=== PATIENT | male | born 1935 | race Caucasian/White ===

== ENCOUNTER 2018-10-02 10:30 | Inpatient (IN) ==
[2018-10-15] MEDS ORDERED: Chlorhexidine Gluconate 2% 1 Pack (2 Cloths) TOPICAL SCH (08:10)
[2018-10-15] MEDS ORDERED: Metoprolol Tartrate 25 MG Tablet PO SCH (08:10)
[2018-10-15] MEDS ORDERED: Chlorhexidine 4% Topical 120 APPLIC/120 ML Bottle TOPICAL SCH (08:15)
[2018-10-15] MEDS ORDERED: SODIUM CHLOR 0.9% IV.SIG SCH ×2 (09:00→12:00)
[2018-10-15] MEDS ORDERED: ceFAZolin 2 GM Premix Inj 2 GM/50 ML PIGGYBACK IV.SIG SCH (09:00)
[2018-10-15] MEDS ORDERED: Sodium Chlor 0.9% Inj 40 ML, Bupivacaine Liposo PF 1.3% Inj 20 ML P-ARTICULR SCH ×2 (09:00)
[2018-10-15] MEDS ORDERED: TRANEXAMIC ACID IV.SIG SCH ×2 (09:00→12:00)
[2018-10-15] MEDS ORDERED: Sodium Chlor 0.9% Inj 500 ML IV.SIG SCH (09:00)
[2018-10-15] MEDS ORDERED: EPINEPHrine PF/SF Inj 1 MG/ML Ampul I-OCULAR ONE (10:28)
[2018-10-15] MEDS ORDERED: Phenylephrine/NS 1000 MCG/10ML Syringe IV.PUSH ONE (10:56)
[2018-10-15] MEDS ORDERED: Post-op Orders (for Pharmacy) OTHER STA (14:05)
--- NOTE | 2018-10-15 14:12 | P.OP ---
- Preoperative Diagnosis (1) Primary osteoarthritis of left hip - Postoperative Diagnosis (1) Primary osteoarthritis of left hip Date of procedure: 10/15/18 Procedure: Left total hip arthroplasty using [place] prosthesis. Anesthesia: local (Exparel), spinal Surgeon: Twin Tinoco MD Estimated blood loss (mL): 600 Pathology: none sent Operation and Findings: Indications and Findings: This 82-year-old man has had at least 14 months of left hip pain progressively worsening to the point that he has limited weightbearing tolerance and a limited ambulation tolerance to 1/2 mile. He has difficulty ascending and descending stairs, pain when standing from a seated position and the like. Treatment has been and has included nonsteroidal anti- inflammatory agents, activity modification, corticosteroid injections, ambulatory aids and analgesics. Physical findings showed limited range of motion hip with tenderness on motion, crepitation on motion and a severely antalgic gait. Radiographic findings showed severe loss of articular cartilage to [id number] with erosion of the superior femoral head, osteophytes and subchondral sclerosis. Operative findings: There was severe osteoarthritis in the left hip with large osteophytes, flattening of the femoral head, erosion of the superior acetabulum and femoral head. There was eburnation and cyst formation. Implants: The acetabular component was a 54 mm Trident II cluster shell with a 32 mm inner diameter X3 polyethylene liner. The femoral component was size 9 x 132 degree Accolade II. The femoral head was Biolox Delta ceramic size 32 mm outer diameter with -5 mm offset. The patient was brought to the clean air operating suite and a spinal anesthetic was administered. The patient was positioned into a lateral position with the operative hip up on a [employer] lateral positioner. The hip and lower extremity were prepped with alcohol, Hibiclens and ChloraPrep and draped in the usual manner with the hip draped free. Patient received prophylactic antibiotics preoperatively. The patient also received tranexamic acid preoperatively. An appropriate timeout procedure was carried out. An incision was made from the midportion of the greater trochanter proximally and posteriorly paralleling the fibers of the gluteus tyrese. The incision was deepened through subcutaneous tissues down to the fascia jasmin and gluteus fascia. The gluteus fascia was then split longitudinally in line with its fibers up to the upper portion of the fascia jasmin. With wound towels in place, the [place] retractor was inserted. The sciatic nerve was identified and protected throughout the procedure. Dissection was then carried down to the interval between the gluteus minimus and the piriformis. A retractor was inserted. The piriformis and obturator conjoined tendon was released from the greater trochanter and reflected off the capsule. A capsulotomy was made longitudinally along the femoral neck to the base of the femoral neck and then curved distally along the posterior aspect of the greater trochanter. The hip was internally rotated. Further release of the external rotators was carried out exposing the hip. The hip was dislocated. The femoral neck was transected at the appropriate level using the oscillating saw placement of appropriate retractors. The femoral head was removed. Preparation of the femur was initiated with a box osteotome followed by a curet to identify the medullary canal. Broaching was then initiated with the size 0 broach and went in 1 size increments up to size 9. The broach handle was removed. The femoral neck was then trimmed with a calcar planar. Attention was then directed to the acetabulum. Soft tissues were debrided from the acetabulum. Retractors were placed about the acetabulum. Reaming was then initiated with the 49 millimeter reamer and went in 1-2 mm increments up to the 54 millimeter diameter reamer. A trial reduction with the 54 millimeter trial prosthesis was carried out. When this was deemed to be appropriate, the trial prosthesis was removed. The acetabulum was irrigated and cleaned. The actual prosthesis as noted above was impacted into place and seated appropriately. Drill holes were made and sounded. Appropriate sized screws were inserted to stabilize the acetabulum further. The liner as noted above was inserted into the acetabular shell and impacted into place. Osteophytes were trimmed from the acetabulum. Local anesthetic was administered throughout the area of the acetabulum and anterior aspect of the femur. The trial neck was placed on the broach for the above-noted prosthesis. The femoral head trial was placed onto the femoral neck . A trial reduction was carried out. Adjustment was made as needed. The stability, leg length and motion were excellent. There was no pistoning. The trial prosthesis was removed. The broach was removed. The femoral component was impacted into the medullary canal of the femur after irrigation and suctioning. When this was appropriately seated a trial reduction was again carried out with the trial prosthesis. There was no pistoning. The leg length was appropriate. The stability and motion were excellent. The trial prosthesis was then removed. After cleaning and drying the trunion of the femoral component, the above-noted femoral head was impacted onto the trunnion. The hip was reduced. The stability and mobility were again checked along with leg lengths as noted above. The hip was positioned appropriately and closure commenced after the remainder of the local anesthetic was injected throughout the hip. The external rotators and capsule were repaired with #1 Vicryl interrupted transosseous sutures with a Krakw technique to reattach the external rotators and capsule to the posterior aspect of the greater trochanter. The capsule itself on the superior aspect was closed with #1 Vicryl interrupted [id number] sutures. The sciatic nerve was inspected. The fascia jasmin and gluteus fascia were repaired with #1 Vicryl interrupted [id number] sutures. The subcutaneous tissues were closed with 2-0 Vicryl interrupted simple sutures with buried knots. The skin was closed with a continuous subcuticular closure of 4-0 Monocryl. The wound was then approximated with Dermabond Prineo. A silver impregnated dressing was applied to the hip. A knee immobilizer was applied to the leg. The patient was transferred from the operating room to the recovery room in satisfactory condition having tolerated the procedure well. Counts are correct. Specimens: None. Estimated blood loss: 600 mL
--- NOTE | 2018-10-15 14:14 | P.DCO ---
- Physical Therapy Physical Therapy: Gait training Hip: Total hip, Protocol: Left, Posterior hip precautions, Progress to weight bearing Canvas Knee Splint: When in bed with 2 pillows between thighs (For 2 months) Left Lower Extremity Weight Bearing: Weight bearing as tolerated Left Lower Extremity Range of Motion: Active ROM - Nursing Nursing: Dressing changes (Do not remove Dermabond Prineo (the tape that is directly on the wound).Leave the Optifoam dressing in place for 7 days. After this, daily dressing changes will be done taking care to avoid injuring or removing the Dermabond Prineo.) Dressing changes: Other (Do not remove Dermabond Prineo (the tape that is directly on the wound).Leave the Optifoam dressing in place for 7 days. After this, daily dressing changes will be done taking care to avoid injuring or removing the Dermabond Prineo.) - Case Management Consult Case Management Consult-Home Health: Yes - Certification Need for Home Health services: I have seen patient Eleno Simmons on 10/15/18. My clinical findings support the need for the requested home health care services because: Need for Home Health Services: Limited ability to care for self, High risk of falls Homebound Certification: I certify that my clinical findings support that this patient is homebound because: Homebound Certification: Post-op weakness, Unsteady gait/balance, Unsafe to leave home unassisted
[2018-10-15] MEDS ORDERED: Morphine Inj 4 MG/ML Vial ONE (14:41)
[2018-10-15] MEDS ORDERED: Morphine Inj 4 MG/ML Vial IV.PUSH PRN (15:00)
[2018-10-15] MEDS ORDERED: Aluminum/Magnesium/Simethacone Susp 30 ML UDC PO PRN (15:00)
[2018-10-15] MEDS ORDERED: Bisacodyl 10 MG Supp RECTAL PRN (15:00)
[2018-10-15] MEDS ORDERED: Zolpidem Tartrate 5 MG Tablet PO PRN (15:00)
[2018-10-15] MEDS ORDERED: Acetaminophen 325 MG Tablet PO PRN (15:00)
--- NOTE | 2018-10-15 15:17 | XR ---
EXAM DATE: 10/15/2018 3:03 PM EST AGE/SEX: 82 years / Male INDICATIONS: Post-op left hip. CLINICAL DATA: This is the patient's initial encounter. Patient reports that signs and symptoms have been present for 1 day and indicates a pain score of 0/10. MEDICAL/SURGICAL HISTORY: None. None. COMPARISON: [facility], XR HIP AP AND LAT, LEFT, 08/30/2018. . FINDINGS: Patient now has a left total hip arthroplasty. Alignment appears within normal limits. No fracture or subluxation demonstrated. CONCLUSION: Postop left total hip arthroplasty with a normal radiographic appearance. Electronically signed by: Ryne Garcia MD Board Certified Radiologist 10/15/2018 3:16 PM EST
--- NOTE | 2018-10-15 15:24 | P.CONIM ---
History of Present Illness Service: Hospitalist Consult date: 10/15/18 Requesting Physician: Twin Tinoco Primary Care Provider: Júnior Eagle MD Chief Complaint: Left hip pain History of Present Illness: Patient is an 82-year-old male with a past medical history that includes chronic left hip pain, hyperlipidemia, anxiety, arthritis, and hypothyroidism. He is hospitalized for planned total left hip replacement after failing conservative management. Hospitalist service has been consulted to assist with medical management. Patient is seen postoperatively sitting up in chair. He has worked with physical therapy. Reports that pain is well controlled. No chest pain or shortness of breath. No nausea or vomiting. He has not yet tried to eat but does say he is getting hungry. Has not yet urinated postoperatively. Review of Systems Review of Systems: all other systems reviewed are negative [facility] Medical History Medical History Anxiety (Acute) Arthritis (Acute) History of skin cancer (Acute) Hyperlipidemia (Acute) Hypothyroid (Acute) Left hip pain (Acute) Surgical History Surgical History History of carpal tunnel release of both wrists (Acute) Hx of appendectomy (Acute) Hx of arthroscopy of knee (Acute) Hx of bilateral cataract extraction (Acute) Hx of oral surgery (Acute) Social History Social History Substance History: No History of Abuse Second Hand Smoke Exposure: No Smoking Status: Never smoker How Often Do You Have a Drink Containing Alcohol: Never Recent Travel in [facility] within the Last 8 Weeks: No Recent Out of Country Travel within the Last 8 Weeks: No Medications and Allergies Allergies Allergy/AdvReac Type Severity Reaction Status Date / Time bee venom protein (honey bee) Allergy Anaphylaxis Verified 10/15/18 07:56 [Bee sting] Home Medications Medication Instructions Recorded Confirmed Type atorvastatin 10 mg PO DAILY 09/20/18 10/15/18 History cyclobenzaprine 10 mg PO TID PRN 09/20/18 10/15/18 History epinephrine [EpiPen] 0.3 mg IM Q15M PRN 09/20/18 10/15/18 History alprazolam 0.5 mg PO TID PRN 09/21/18 10/15/18 History cyanocobalamin (vitamin B-12) 1,000 mcg PO DAILY 09/21/18 10/15/18 History [Vitamin B-12] duloxetine 30 mg PO DAILY 09/21/18 10/15/18 History hydrocodone-acetaminophen 1 tab PO Q4-6H PRN 09/21/18 10/15/18 History levothyroxine 88 mcg PO DAILY 09/21/18 10/15/18 History testosterone cypionate 1.5 mg IM Q2W 09/21/18 10/15/18 History Active Medications: Active Medications Acetaminophen (Tylenol) 650 mg PO Q6H PRN PRN Reason: Pain Less Than 3 On Scale Hydrocodone Bitart/Acetaminophen ([place] 7.5/325) 1 tab PO Q4H PRN PRN Reason: PAIN SCALE 4 TO 6 MODERATE Hydrocodone Bitart/Acetaminophen ([place] 7.5/325) 2 tab PO Q6H PRN PRN Reason: PAIN SCALE 7 TO 10 SEVERE Al Hydrox/Mg Hydrox/Simethicone (Mag-Al Plus Susp Liq) 30 ml PO Q6H PRN PRN Reason: INDIGESTION Al Hydroxide/Mg Hydroxide (Milk Of Magnesia Liq) 30 ml PO BID PRN PRN Reason: Mild Constipation Alprazolam (Xanax) 0.5 mg PO TID PRN PRN Reason: Anxiety Aspirin (Aspirin Chew) 81 mg PO BID [facility] Atorvastatin Calcium (Lipitor) 10 mg PO DAILY [facility] Bisacodyl (Dulcolax Supp) 10 mg RECTAL DAILY PRN PRN Reason: SEVERE CONSITIPATION Chlorhexidine Gluconate (Chlorhexidine 2% Cloth) 3 pack TOPICAL SECURITY COMPLIANCE SPECIALIST [facility] Stop: 10/15/18 23:59 Chlorhexidine Gluconate (Hibiclens 4% Topical) 1 applicatio TOPICAL ONCE [facility] Stop: 10/19/18 08:14 Cyanocobalamin (Vitamin B12) 1,000 mcg PO DAILY [facility] Cyclobenzaprine HCl (Flexeril) 10 mg PO TID PRN PRN Reason: SPASM Diphenhydramine HCl (Benadryl) 25 mg PO Q6H PRN PRN Reason: ITCHING Duloxetine HCl (Cymbalta) 30 mg PO DAILY [facility] Epinephrine HCl (Epipen Jr 2-Kurt Inj) 0.3 mg IM Q15M PRN PRN Reason: ANAPHYLAXIS Lactated Ringer's (Lr 1000 Ml Inj) 1,000 mls @ 30 mls/hr IV.SIG .Q24H [facility] Stop: 10/16/18 08:14 Sodium Chloride (Ns Inj) 500 mls @ 30 mls/hr IV.SIG .[id number] [facility] Stop: 10/16/18 01:39 Cefazolin Sodium/Dextrose (Ancef 2 Gm Premix Inj) 2 gm in 50 mls @ 100 mls/hr IV.SIG SECURITY COMPLIANCE SPECIALIST [facility] Stop: 10/19/18 08:59 Last Infusion: 10/15/18 12:00 Dose: Infused Tranexamic Acid 827 mg/ Sodium (Chloride) 108.27 mls @ 200 mls/hr IV.SIG ONCE [facility] Stop: 10/15/18 18:00 Last Admin: 10/15/18 14:22 Dose: 200 mls/hr Cefazolin Sodium 1,000 mg/ (Sodium Chloride) 100 mls @ 200 mls/hr IV.SIG Q6H [facility] Stop: 10/16/18 05:29 Lactated Ringer's (Lr 1000 Ml Inj) 1,000 mls @ 80 mls/hr IV.CONT .[id number] [facility] Tranexamic Acid 827 mg/ Sodium (Chloride) 108.27 mls @ 200 mls/hr IV.SIG ONCE ONE Stop: 10/15/18 18:32 Ketorolac Tromethamine (Toradol Inj) 15 mg IV.PUSH Q6H [facility] Stop: 10/17/18 10:01 Lactulose (Lactulose Liq) 30 ml PO DAILY PRN PRN Reason: SEVERE CONSITIPATION Levothyroxine Sodium (Synthroid) 88 mcg PO DAILY@0600 [facility] Metoprolol Tartrate (Lopressor) 25 mg PO SECURITY COMPLIANCE SPECIALIST [facility] Stop: 10/15/18 23:59 Miscellaneous Information (Mis Nursing Information) 1 each OTHER UNSCH PRN PRN Reason: SEE LABEL COMMENTS Stop: 10/16/18 14:28 Morphine Sulfate (Morphine Inj) 2 mg IV.PUSH Q3H PRN PRN Reason: BREAKTHROUGH PAIN Ondansetron HCl (Zofran Odt) 4 mg PO Q6H PRN PRN Reason: NAUSEA OR VOMITING Testosterone Cypionate 1.5 Mg Im Every 2 Weeks 0 each IM Q14D [facility] Povidone Iodine (Betadine 5% Antisepsis Kit) 1 applicatio EACH NARE SECURITY COMPLIANCE SPECIALIST [facility] Stop: 10/15/18 23:59 Senna/Docusate Sodium (Claribel-Colace) 1 tab PO BID [facility] Sennosides (Senokot) 17.2 mg PO BID PRN PRN Reason: Moderate Constipation Sodium Chloride (Ns Flush) 2 ml IV.FLUSH BID [facility] Sodium Chloride (Ns Flush) 2 ml IV.FLUSH PRN PRN PRN Reason: FLUSH AFTER USING IV ACCESS Zolpidem Tartrate (Ambien) 5 mg PO HS PRN PRN Reason: INSOMNIA Physical Exam Vital signs: Vital Signs 10/15/18 08:10 10/15/18 14:27 10/15/18 14:30 Temperature 98.1 F 97.5 F L Pulse Rate 86 70 70 Respiratory Rate 16 20 14 Blood Pressure 134/97 H 123/68 115/63 Pulse Oximetry 99 94 L 95 10/15/18 14:45 10/15/18 15:00 10/15/18 15:07 Temperature Pulse Rate 80 78 Respiratory Rate 21 18 Blood Pressure 118/66 126/72 Pulse Oximetry 92 L 96 96 Intake & Output 10/14/18 10/15/18 10/15/18 18:59 06:59 18:59 Intake Total 2658.27 / 2658.27 Output Total 600 / 600 Balance 2058.27 / 2058.27 Weight 82.7 kg Intake: IV 158.27 / 158.27 Cyklokapron Inj 827 MG In NS 108.27 / 108.27 Inj 100 ML @ 200 mls/hr IV.SIG ONCE [facility] Rx#:[id number] Ancef 2 GM Premix Inj 2 gm In 50 / 50 50 ml @ 100 mls/hr IV.SIG SECURITY COMPLIANCE SPECIALIST [facility] Rx#:[id number] Anesthesia Amount 2500 / 2500 Output: Estimated Blood Loss 600 / 600 Other: Weight On Admission 82.7 kg Narrative: GENERAL: Well-nourished, well-developed adult male in no obvious distress. SKIN: Warm and dry. HEAD: Atraumatic. Normocephalic. CARDIOVASCULAR: Regular rate and rhythm. RESPIRATORY: No accessory muscle use. Clear to auscultation. Breath sounds equal bilaterally. GASTROINTESTINAL: Abdomen soft, non-tender, non-distended. Positive bowel sounds. MUSCULOSKELETAL: Left hip with surgical dressing. No drainage noted. All extremities warm and well-perfused. NEUROLOGICAL: Awake and alert. No obvious cranial nerve deficits. Motor grossly within normal limits. Normal speech. Results Imaging Impressions Hip X-Ray 10/15/18 14:03 CONCLUSION: Postop left total hip arthroplasty with a normal radiographic appearance. ABG Impressions Hip X-Ray 10/15/18 14:03 CONCLUSION: Postop left total hip arthroplasty with a normal radiographic appearance. Assessment and Plan (1) Status post total replacement of left hip: Code(s): Z96.642 - Presence of left artificial hip joint Status: Acute Plan Patient is an 82-year-old male with a past medical history that includes chronic left hip pain, hyperlipidemia, anxiety, arthritis, skin cancer with recent Mohs procedure, and hypothyroidism. He is hospitalized for planned total left hip replacement after failing conservative management. Hospitalist service has been consulted to assist with medical management. Left hip pain S/P Left total hip arthroplasty using [place] prosthesis on 10/15. -Managed as per orthopedics -Pain control; postoperative care; fall precaution -PT ordered Chronic conditions: Hyperlipidemia, anxiety, hypothyroidism -Restart home medications Labs reviewed: Grossly normal with only mild neutropenia noted. Monitor DVT prophylaxis: As per primary Discharge planning: Appreciate PT Recs and case management assistance Thank you for this consult. We appreciate the opportunity to assist you with medical management of this patient. ATTENDING ATTESTATION: Patient seen and examined personally by my today, history and exam performed by myself and discussed romelia Castillo, her note above has been reviewed and agree as written, I have edited it as necessary to reflect my personal exam findings, and assessment and plan additionally patient having some pain post morphine, otherwise denies sob or cp. Pain control will be adjusted periop.
[2018-10-15] MEDS: Ketorolac Inj 30 MG/ML (IVP) Vial IV.PUSH SCH ×2 (16:01→21:04)
[2018-10-15] MEDS: ceFAZolin Inj 1 GM in Sodium Chlor 0.9% Inj 100 ML IV.SIG SCH ×2 (17:09→23:21)
[2018-10-15] MEDS ORDERED: TRANEXAMIC ACID IV.SIG ONE (18:00)
[2018-10-15] MEDS ORDERED: SODIUM CHLOR 0.9% IV.SIG ONE (18:00)
[2018-10-15] MEDS ORDERED: Morphine Sulfate Inj 2 MG/ML Vial IV.PUSH ONE (19:15)
[2018-10-15] MEDS: Senna/Docusate Sodium 8.6/50 MG Tablet PO SCH (21:10)
[2018-10-16 05:00] LABS: Hematocrit 32.9 % (39.0-51.0); Hemoglobin 11.3 gm/dL (13.0-17.0)
--- NOTE | 2018-10-16 06:05 | P.PNOP ---
Subjective Interval history: Postop day #1 The nurses report that the patient has been somewhat confused. He has been trying to climb out of bed without assistance. He indicates that the hip has been fairly painful. He is currently getting a new IV for his antibiotics. Physical therapy reports that the ambulation distance was 160 feet. Physical Exam Vital signs: Vital Signs 10/15/18 08:10 10/15/18 14:27 10/15/18 14:30 Temperature 98.1 F 97.5 F L Pulse Rate 86 70 70 Respiratory Rate 16 20 14 Blood Pressure 134/97 H 123/68 115/63 Pulse Oximetry 99 94 L 95 10/15/18 14:45 10/15/18 15:00 10/15/18 15:07 Temperature Pulse Rate 80 78 Respiratory Rate 21 18 Blood Pressure 118/66 126/72 Pulse Oximetry 92 L 96 96 10/15/18 15:15 10/15/18 16:00 10/15/18 19:00 Temperature 98.4 F 97.2 F L 98.5 F Pulse Rate 69 85 109 H Respiratory Rate 15 18 18 Blood Pressure 131/72 148/86 H 157/86 H Pulse Oximetry 97 99 96 10/16/18 00:11 10/16/18 04:30 Temperature 98.9 F 99.6 F Pulse Rate 95 H 108 H Respiratory Rate 18 18 Blood Pressure 125/66 124/65 Pulse Oximetry 99 98 Intake & Output 10/15/18 10/15/18 10/16/18 06:59 18:59 06:59 Intake Total 2758.27 / 2758.27 460 / 460 Output Total 600 / 600 780 / 780 Balance 2158.27 / 2158.27 -320 / -320 Weight 82.7 kg 86.4 kg Intake: IV 258.27 / 258.27 100 / 100 Cyklokapron Inj 827 MG In NS 108.27 / 108.27 Inj 100 ML @ 200 mls/hr IV.SIG ONCE [facility] Rx#:[id number] Ancef 2 GM Premix Inj 2 gm In 50 / 50 50 ml @ 100 mls/hr IV.SIG PRODUCTION TESTER [facility] Rx#:[id number] Ancef Inj 1 GM In NS Inj 100 ML 100 / 100 100 / 100 @ 200 mls/hr IV.SIG Q6H [facility] Rx #:[id number] Oral 360 / 360 Anesthesia Amount 2500 / 2500 Output: Urine 780 / 780 Estimated Blood Loss 600 / 600 Other: Date of Last Bowel Movement 10/14/18 # Bowel Movements 0 Weight On Admission 82.7 kg Narrative: He is resting relatively comfortably in a supine position on the bed. His dressing is dry and intact. There is no drainage. There is no erythema. There is no induration or swelling. His neurovascular status is intact. Results - Labs CBC & Chem 7: 10/16/18 03:31 Laboratory Results - last 24 hr 10/15/18 10/16/18 08:15 03:31 Hgb 11.3 L Hct 32.9 L Blood Type O Negative Blood Type Recheck Required Antibody Screen Negative - Imaging Impressions Hip X-Ray 10/15/18 14:03 CONCLUSION: Postop left total hip arthroplasty with a normal radiographic appearance. - Procedures Left total hip arthroplasty using [place] prosthesis on 10/15/2017. Assessment and Plan - Ortho Post Op Day # 1 - Problem List (1) Status post total replacement of left hip Code(s): Z96.642 - Presence of left artificial hip joint Status: Acute Onset Date: 10/15/18 Plan: Continue postop care and PT. - Assessment and Plan Condition: Good. Orthopedically stable. DVT prophylaxis: TEDs, aspirin, sequentials. Discharge plans: Home with home health care. An appointment was scheduled through the office. Prescriptions: [place] 7.5/325; Patient is having significant pain caused by a total hip arthroplasty which will last more than 3 days. Trial of Tylenol has not helped. I believe that it is medically necessary to treat patients pain because it is affecting patients ability to participate in postoperative rehabilitation and perform activities of daily living in a comfortable and efficient manner. I have checked the [facility] database prior to completing the prescription.
[2018-10-16] MEDS: ceFAZolin Inj 1 GM in Sodium Chlor 0.9% Inj 100 ML IV.SIG SCH (06:13)
[2018-10-16] MEDS: Ketorolac Inj 30 MG/ML (IVP) Vial IV.PUSH SCH ×3 (06:13→16:50)
[2018-10-16] MEDS: Levothyroxine 88 MCG Tablet PO SCH (06:19)
[2018-10-16] MEDS: Senna/Docusate Sodium 8.6/50 MG Tablet PO SCH ×2 (08:23→20:09)
--- NOTE | 2018-10-16 09:47 | P.PNIM ---
Subjective Interval history: f/u left hip total arthroplasty pt sitting in the chair, c/o did not sleep last night. Stated he was taking Ambien at home Pt c/o let leg pain 10/10 with movement, 1/10 without movement/while sitting Physical Exam Vital signs: Vital Signs 10/15/18 14:27 10/15/18 14:30 10/15/18 14:45 Temperature 97.5 F L Pulse Rate 70 70 80 Respiratory Rate 20 14 21 Blood Pressure 123/68 115/63 118/66 Pulse Oximetry 94 L 95 92 L 10/15/18 15:00 10/15/18 15:07 10/15/18 15:15 Temperature 98.4 F Pulse Rate 78 69 Respiratory Rate 18 15 Blood Pressure 126/72 131/72 Pulse Oximetry 96 96 97 10/15/18 16:00 10/15/18 19:00 10/16/18 00:11 Temperature 97.2 F L 98.5 F 98.9 F Pulse Rate 85 109 H 95 H Respiratory Rate 18 18 18 Blood Pressure 148/86 H 157/86 H 125/66 Pulse Oximetry 99 96 99 10/16/18 04:30 10/16/18 08:00 Temperature 99.6 F 99.0 F Pulse Rate 108 H 117 H Respiratory Rate 18 16 Blood Pressure 124/65 125/60 Pulse Oximetry 98 94 L Intake & Output 10/15/18 10/16/18 10/16/18 18:59 06:59 18:59 Intake Total 2758.27 / 2758.27 460 / 460 Output Total 600 / 600 780 / 780 Balance 2158.27 / 2158.27 -320 / -320 Weight 82.7 kg 86.4 kg Intake: IV 258.27 / 258.27 100 / 100 Cyklokapron Inj 827 MG In NS 108.27 / 108.27 Inj 100 ML @ 200 mls/hr IV.SIG ONCE BRENDA Rx#:[id number] Ancef 2 GM Premix Inj 2 gm In 50 / 50 50 ml @ 100 mls/hr IV.SIG SPOOL WORKER BRENDA Rx#:[id number] Ancef Inj 1 GM In NS Inj 100 ML 100 / 100 100 / 100 @ 200 mls/hr IV.SIG Q6H BRENDA Rx #:[id number] Oral 360 / 360 Anesthesia Amount 2500 / 2500 Output: Urine 780 / 780 Estimated Blood Loss 600 / 600 Other: Date of Last Bowel Movement 10/14/18 # Bowel Movements 0 Weight On Admission 82.7 kg Narrative: GENERAL: well developed, well nourished, male, in no acute distress SKIN: Warm and dry. HEAD: Atraumatic. Normocephalic. EYES: Pupils equal and round. No scleral icterus. No injection or drainage. ENT: No nasal bleeding or discharge. Mucous membranes pink and moist. NECK: Trachea midline. No JVD. CARDIOVASCULAR: Regular rate and rhythm. RESPIRATORY: No accessory muscle use. Clear to auscultation. Breath sounds equal bilaterally. GASTROINTESTINAL: Abdomen soft, non-tender, nondistended. Hepatic and splenic margins not palpable. MUSCULOSKELETAL: Extremities without clubbing, cyanosis. Left hip with trace edema, incision intact, dressed dry and intact. all extremities warm with palpable pulses NEUROLOGICAL: Awake and alert. No obvious cranial nerve deficits. Motor grossly within normal limits. Moving all 4 extremities except left LE with limited ROM. Normal speech. PSYCHIATRIC: Appropriate mood and affect; insight and judgment normal. Results Labs CBC & Chem 7: 10/16/18 03:31 Imaging Imaging: Impressions Hip X-Ray 10/15/18 14:03 CONCLUSION: Postop left total hip arthroplasty with a normal radiographic appearance. Procedures Procedures: Left total hip arthroplasty using [place] prosthesis on 10/15/2017. Assessment and Plan (1) Status post total replacement of left hip: Code(s): Z96.642 - Presence of left artificial hip joint Status: Acute Onset Date: 10/15/18 Plan This patient is a 82-year-old male with a past medical history that includes chronic left hip pain, hyperlipidemia, anxiety, arthritis, skin cancer with recent Mohs procedure, and hypothyroidism. He is hospitalized for planned total left hip replacement after failing conservative management. Hospitalist service has been consulted to assist with medical management. Left hip pain S/P Left total hip arthroplasty using [place] prosthesis on 10/15. -Managed as per orthopedics -Pain control with bowel regimen - postoperative care; fall precaution -continue PT eval and treat -continue on post op proph Cefazolin Hypothyroidism -continue Synthroid Hyperlipidemia -continue statin Anxiety/Depression -continue duloxetine and prn xanax Insomnia -add melatonin, monitor response Slight Anemia, likely post op Mild neutropenia on lab results pre op -no fever -recheck CBC in am DVT prophylaxis: aspirin BID per Ortho Code Status: full code Discussed Condition With: patient and nurse Discharge Planning: Discharge with PT recommendation and CM assistance Progress Note: Quality VTE Deep Vein Thrombosis/Pulmonary Embolism Present on Admission: No
--- NOTE | 2018-10-16 09:58 | P.DS ---
Date of admission: 10/15/18 07:15 Primary care physician: Júnior Eagle MD Attending physician on discharge: Twin Tinoco Anticipated date of discharge: 10/17/18 Brief History from admission: This 82-year-old man has had long-standing arthritis in his left hip nonresponsive to conservative measures as detailed in the history and physical examination. He had marked limitation of ambulation with marked tenderness in the hip. Physical findings showed decreased range of motion with tenderness in the right hip. He had an antalgic gait. X-rays showed loss of articular cartilage to [id number] formation of the femoral head with flattening of the femoral head, osteophytes and eburnation. DS: Diagnosis - Discharge Diagnosis (1) Status post total replacement of left hip Status: Acute Diagnosis: Principal (2) Primary osteoarthritis of left hip Status: Chronic Diagnosis: Principal DS: Medications - Discharge Medications Prescriptions: hydrocodone-acetaminophen 1 tab PO Q4H PRN 7 Days #42 tab PRN Reason: Pain DS: Summary Hospital Course: The patient was admitted as noted above. The above noted operative procedure was carried out that day. Preoperatively prophylactic antibiotics were administered Ancef according to protocol. These were continued postoperatively. The patient also received tranexamic acid to help with hemostasis according to protocol. In the postanesthesia care unit mechanical methods of DVT prophylaxis in the form of BAILEY stockings and sequentials were initiated. Physical therapy was initiated on the day of surgery. On postoperative day #1 physical therapy continued. DVT prophylaxis with aspirin 81 mg twice daily was initiated at this time. The patient continued physical therapy throughout the hospitalization. The distance walked and range of motion improved throughout the hospitalization. He was somewhat agitated on the first day after surgery. He was kept an additional day. On postoperative day #2 he continues with physical therapy. We have discussed cautions related to medications and activities. The patient was discharged on postoperative day 1 with the disposition being to home with home health care. An appointment for follow-up was made prior to admission. - Time Spent with Patient Total time spent providing and/or coordinating discharge services: Less than 30 minutes - Quality: VTE Deep Vein Thrombosis/Pulmonary Embolism Present on Admission: No Exam Vital signs: Vital Signs 10/15/18 14:27 10/15/18 14:30 10/15/18 14:45 Temperature 97.5 F L Pulse Rate 70 70 80 Respiratory Rate 20 14 21 Blood Pressure 123/68 115/63 118/66 Pulse Oximetry 94 L 95 92 L 10/15/18 15:00 10/15/18 15:07 10/15/18 15:15 Temperature 98.4 F Pulse Rate 78 69 Respiratory Rate 18 15 Blood Pressure 126/72 131/72 Pulse Oximetry 96 96 97 10/15/18 16:00 10/15/18 19:00 10/16/18 00:11 Temperature 97.2 F L 98.5 F 98.9 F Pulse Rate 85 109 H 95 H Respiratory Rate 18 18 18 Blood Pressure 148/86 H 157/86 H 125/66 Pulse Oximetry 99 96 99 10/16/18 04:30 10/16/18 08:00 Temperature 99.6 F 99.0 F Pulse Rate 108 H 117 H Respiratory Rate 18 16 Blood Pressure 124/65 125/60 Pulse Oximetry 98 94 L Intake & Output 10/15/18 10/16/18 10/16/18 18:59 06:59 18:59 Intake Total 2758.27 / 2758.27 460 / 460 Output Total 600 / 600 780 / 780 Balance 2158.27 / 2158.27 -320 / -320 Weight 82.7 kg 86.4 kg Intake: IV 258.27 / 258.27 100 / 100 Cyklokapron Inj 827 MG In NS 108.27 / 108.27 Inj 100 ML @ 200 mls/hr IV.SIG ONCE BRENDA Rx#:[id number] Ancef 2 GM Premix Inj 2 gm In 50 / 50 50 ml @ 100 mls/hr IV.SIG CAFE ASSOCIATE BRENDA Rx#:[id number] Ancef Inj 1 GM In NS Inj 100 ML 100 / 100 100 / 100 @ 200 mls/hr IV.SIG Q6H BRENDA Rx #:[id number] Oral 360 / 360 Anesthesia Amount 2500 / 2500 Output: Urine 780 / 780 Estimated Blood Loss 600 / 600 Other: Date of Last Bowel Movement 10/14/18 # Bowel Movements 0 Weight On Admission 82.7 kg Narrative: He is resting relatively comfortably in a supine position on the bed. His dressing is dry and intact. There is no drainage. There is no erythema. There is no induration or swelling. His neurovascular status is intact. Results Procedures completed during hospitalization: Left total hip arthroplasty using [place] prosthesis on 10/15/2017. Labs on day of discharge: Labs from last 24 hours 10/16/18 03:31 Hgb 11.3 L Hct 32.9 L - Impressions ITS Impressions Hip X-Ray 10/15/18 14:03 CONCLUSION: Postop left total hip arthroplasty with a normal radiographic appearance. Discharge Plan - Discharge Disposition Patient Disposition: W/Home Health Service - Discharge Condition Condition: Stable - Discharge Order Discharge Orders: Discharge Order (Routine); Ordered 10/17/18 Ordered By: Twin Tinoco - Discharge Details Anticipated Discharge Date: 10/16/18 - Physicians Team Primary Care Provider: Júnior Eagle Attending Provider: Twin Tinoco Other Providers: [facility] ; Sonido Norris MD - Rxs /Orders / Referrals /Forms Prescriptions: New hydrocodone-acetaminophen 7.5-325 mg Tablet 1 tab PO Q4H PRN (Reason: Pain) 7 Days Qty: 42 RF: 0 Continue alprazolam 0.5 mg Tablet 0.5 mg PO TID PRN (Reason: Anxiety) atorvastatin 10 mg Tablet 10 mg PO DAILY cyanocobalamin (vitamin B-12) [Vitamin B-12] 1,000 mcg Tablet 1,000 mcg PO DAILY cyclobenzaprine 10 mg Tablet 10 mg PO TID PRN (Reason: Spasms) duloxetine 30 mg Capsule,Delayed Release(Dr/Ec) 30 mg PO DAILY epinephrine [EpiPen] 0.3 mg/0.3 mL Auto-Injector 0.3 mg IM Q15M PRN (Reason: Anaphylaxis) hydrocodone-acetaminophen 10-325 mg Tablet 1 tab PO Q4-6H PRN (Reason: Pain) levothyroxine 88 mcg Capsule 88 mcg PO DAILY testosterone cypionate 100 mg/mL Oil 1.5 mg IM Q2W Referrals: Twin Tinoco MD [Physician] - See Instructions ( Your appointment has been scheduled for 10/29/18 at 2:30pm. If you cannot make this appointment, please call the office to reschedule ) Júnior Eagle MD [Primary Care Provider] - See Instructions ( Please call the physician's office to book the appointment to be seen by Dr Eagle. ) - Discharge Instructions Patient Printed Instructions: How to Use an Incentive Spirometer (DC), How to Choose and Use a Walker (GEN), Narcotic Safety (DC), Precautions after Total Joint Replacement Surgery (DC), BAILEY Hose (DC), Safe Use of Anticoagulants (DC), Total Hip Replacement (DC) Additional Instructions: PRESCRIPTIONS PROVIDED AT DISCHARGE, TAKE ALL MEDICATIONS INSTRUCTED BY YOUR PHYSICIAN. KEEP ALL FOLLOW UP APPOINTMENTS INDICATED, CALL IF APPOINTMENT NEEDS TO BE RESCHEDULED. MAINTAIN SURGICAL DRESSING, DO NOT CHANGE. CONTINUE TO USE WALKER FOR ASSISTANCE WITH AMBULATION. CONTINUE TO USE INCENTIVE SPIROMETER FOR PREVENTION OF POST OP PNEUMONIA.
[2018-10-16] MEDS: ALPRAZolam 0.5 MG Tablet PO PRN ×2 (12:39→20:10)
[2018-10-17] MEDS: Ketorolac Inj 30 MG/ML (IVP) Vial IV.PUSH SCH ×3 (02:06→10:00)
[2018-10-17] MEDS: ALPRAZolam 0.5 MG Tablet PO PRN (05:49)
[2018-10-17] MEDS: Levothyroxine 88 MCG Tablet PO SCH (05:49)
[2018-10-17 06:17] LABS: Baso % (Auto) 0.1 % (0.0-2.0); Eos % (Auto) 0.2 % (0.0-4.0); Hematocrit 33.8 % (39.0-51.0); Hemoglobin 11.7 gm/dL (13.0-17.0); Lymph % (Auto) 13.4 % (9.0-44.0); Mean Corpuscular HGB Conc 34.5 % (32.0-36.0); Mean Corpuscular Hemoglobin 33.1 pg (27.0-34.0); Mean Corpuscular Volume 95.9 fL (80.0-100.0); Mean Platelet Volume 9.1 fL (7.0-11.0); Mono # (Auto) 1.7 th/mm3 (0.0-0.9); Mono % (Auto) 23.2 % (0.0-8.0); Neut # (Auto) 4.6 th/mm3 (1.8-7.7); Neut % (Auto) 63.1 % (16.0-70.0); Platelet Count 180 th/mm3 (150-450); Red Blood Count 3.52 mil/mm3 (4.50-5.90); White Blood Count 7.2 th/mm3 (4.0-11.0)
[2018-10-17 06:51] LABS: Calcium 8.4 mg/dL (8.5-10.1); Carbon Dioxide 31.5 meq/L (21.0-32.0); Potassium 3.9 meq/L (3.5-5.1)
--- NOTE | 2018-10-17 07:40 | P.PNOP ---
Subjective Interval history: Postop day #2 He is doing well today. Yesterday, he was somewhat combative and difficult. Today he is alert and appropriate. Physical therapy reports that the ambulation distance was 150 feet. Physical Exam Vital signs: Vital Signs 10/16/18 08:00 10/16/18 12:00 10/16/18 16:00 Temperature 99.0 F 97.9 F 99.7 F H Pulse Rate 117 H 102 H 96 H Respiratory Rate 16 Blood Pressure 125/60 121/69 116/70 Pulse Oximetry 94 L 95 97 10/16/18 19:40 10/16/18 23:55 10/17/18 05:40 Temperature 99.0 F 98.8 F 98.0 F Pulse Rate 104 H 104 H 103 H Respiratory Rate Blood Pressure 113/57 L 119/64 118/71 Pulse Oximetry 97 96 96 Intake & Output 10/16/18 10/17/18 10/17/18 18:59 06:59 18:59 Intake Total 800 / 800 Output Total 200 / 200 Balance 600 / 600 Weight 86.4 kg Intake: IV 500 / 500 LR 1000 mL Inj 1,000 ML @ 80 500 / 500 mls/hr IV.CONT .[id number] BRENDA Rx# :[id number] Oral 300 / 300 Output: Urine 200 / 200 Other: # Voids 3 Date of Last Bowel Movement 10/14/18 10/14/18 # Bowel Movements 0 Narrative: He is resting relatively comfortably in a supine position on the bed. His dressing is dry and intact. There is no drainage. There is no erythema. There is no induration or swelling. His neurovascular status is intact. He is alert and appropriate. Results - Labs CBC & Chem 7: 10/17/18 05:45 10/17/18 05:45 Laboratory Results - last 24 hr 10/17/18 10/17/18 05:45 05:45 WBC 7.2 RBC 3.52 L Hgb 11.7 L Hct 33.8 L MCV 95.9 MCH 33.1 MCHC 34.5 RDW 13.0 Plt Count 180 MPV 9.1 Neut % (Auto) 63.1 Lymph % (Auto) 13.4 [place] % (Auto) 23.2 H Eos % (Auto) 0.2 Baso % (Auto) 0.1 Neut # (Auto) 4.6 Lymph # (Auto) 1.0 [place] # (Auto) 1.7 H Eos # (Auto) 0.0 Baso # (Auto) 0.0 WBC Differential . Differential Comment Auto diff final Sodium 141 Potassium 3.9 Chloride 105 Carbon Dioxide 31.5 Anion Gap 5 BUN 13 Creatinine 1.13 Estimated GFR 62 L Random Glucose 115 H Calcium 8.4 L - Procedures Left total hip arthroplasty using [place] prosthesis on 10/15/2017. Assessment and Plan - Ortho Post Op Day # 2 - Problem List (1) Status post total replacement of left hip Code(s): Z96.642 - Presence of left artificial hip joint Status: Acute Onset Date: 10/15/18 Plan: I have discussed precautions related to the hip with him. He should be able to bear weight. He is aware that healing time for the soft tissues is 6 weeks. He should not legs. He should not pivot. We have discussed the interactions of medications and ethanol. He should not be driving until he is off of narcotics. (2) Primary osteoarthritis of left hip Code(s): M16.12 - Unilateral primary osteoarthritis, left hip Status: Chronic - Assessment and Plan Condition: Good. Orthopedically stable. DVT prophylaxis: TEDs, aspirin, sequentials. Discharge plans: Home with home health care. An appointment was scheduled through the office. Prescriptions: [place] 7.5/325; Patient is having significant pain caused by a total hip arthroplasty which will last more than 3 days. Trial of Tylenol has not helped. I believe that it is medically necessary to treat patients pain because it is affecting patients ability to participate in postoperative rehabilitation and perform activities of daily living in a comfortable and efficient manner. I have checked the [employer] database prior to completing the prescription.
[2018-10-17] MEDS: Senna/Docusate Sodium 8.6/50 MG Tablet PO SCH (08:24)
[2018-10-17 12:46] VITALS: BP 111/53; PULSE 88; RESP 18; TEMP 98.6; O2SAT 90
--- NOTE | 2018-10-17 14:12 | P.PNIM ---
Subjective Interval history: f/u left hip total arthroplasty, hypothyroidism, HLD, anxiety and depression Pt seen and examined, sitting in the chair, denies any pain or discomfort. Pt stated eating well, denies any nausea or vomiting, denies any constipation. Pt denies any fever or chills. Nurse reported pt was confused yesterday but improving today. Physical Exam Vital signs: Vital Signs 10/16/18 16:00 10/16/18 19:40 10/16/18 23:55 Temperature 99.7 F H 99.0 F 98.8 F Pulse Rate 96 H 104 H 104 H Respiratory Rate 16 20 19 Blood Pressure 116/70 113/57 L 119/64 Pulse Oximetry 97 97 96 10/17/18 05:40 10/17/18 12:46 Temperature 98.0 F 98.6 F Pulse Rate 103 H 88 Respiratory Rate 19 18 Blood Pressure 118/71 111/53 L Pulse Oximetry 96 90 L Intake & Output 10/16/18 10/17/18 10/17/18 18:59 06:59 18:59 Intake Total 800 / 800 Output Total 200 / 200 Balance 600 / 600 Weight 86.4 kg Intake: IV 500 / 500 LR 1000 mL Inj 1,000 ML @ 80 500 / 500 mls/hr IV.CONT .[id number] BRENDA Rx# :[id number] Oral 300 / 300 Output: Urine 200 / 200 Other: # Voids 3 Date of Last Bowel Movement 10/14/18 10/14/18 10/14/18 # Bowel Movements 0 Narrative: GENERAL: well developed, well nourished, male, in no acute distress SKIN: Warm and dry. HEAD: Atraumatic. Normocephalic. EYES: Pupils equal and round. No scleral icterus. No injection or drainage. ENT: No nasal bleeding or discharge. Mucous membranes pink and moist. NECK: Trachea midline. No JVD. CARDIOVASCULAR: Regular rate and rhythm. RESPIRATORY: No accessory muscle use. Clear to auscultation. Breath sounds equal bilaterally. GASTROINTESTINAL: Abdomen soft, non-tender, nondistended. Hepatic and splenic margins not palpable. MUSCULOSKELETAL: Extremities without clubbing, cyanosis. Left hip with trace edema, incision intact, dressed dry and intact. Bilateral LE warm with palpable pulses NEUROLOGICAL: Awake and alert. No obvious cranial nerve deficits. Generalized weakness, Moving all 4 extremities except left LE with limited ROM. Normal speech. PSYCHIATRIC: Appropriate mood and affect; cooperative Results Labs CBC & Chem 7: 10/17/18 05:45 10/17/18 05:45 Procedures Procedures: Left total hip arthroplasty using [place] prosthesis on 10/15/2017. Assessment and Plan Plan This patient is a 82-year-old male with a past medical history that includes chronic left hip pain, hyperlipidemia, anxiety, arthritis, skin cancer with recent Mohs procedure, and hypothyroidism. He is hospitalized for planned total left hip replacement after failing conservative management. Hospitalist service has been consulted to assist with medical management. Left hip pain S/P Left total hip arthroplasty using [place] prosthesis on 10/15. -Managed as per orthopedics -Pain control with bowel regimen - postoperative care; fall precaution -continue PT eval and treat -continue on post op proph Cefazolin Hypothyroidism -continue Synthroid Hyperlipidemia -continue statin Anxiety/Depression -continue duloxetine and prn xanax Insomnia -add melatonin, monitor response Slight Anemia, likely post op Mild neutropenia on lab results pre op -no fever -h/h stable, WBC improve to 7.2, follow CBC DVT prophylaxis: aspirin BID per Ortho Pt medically stable for discharge with [facility]. Thank you for your consultation. Discharge Planning: Discharge with PT recommendation and CM assistance Progress Note: Quality VTE Deep Vein Thrombosis/Pulmonary Embolism Present on Admission: No
[2018-10-28] MEDS ORDERED: TESTOSTERONE CYPIONATE IM SCH (15:00)
== END 2018-10-17 14:25 | disposition home health service (06) | DRG 470 ==
LOC: HSDI 10-15 07:15 → N06 10-15 15:33
PROVIDERS: ADMIT Orthopaedic Surgery; ATTEND Orthopaedic Surgery
CPT/HCPCS: 73502; 80048; 85014; 85018; 85025; 86850; 86900; 86901; 94150; 97110; 97116; 97150; 97162; 97167; 97535; C1776; C9290; J0171; J0690; J1100; J1580; J1885; J2270; J2370; J2405; J2704; J7120; L1830